=== PATIENT | female | born 1930 | race Caucasian/White ===

== ENCOUNTER 2018-03-20 11:32 | Day surgery (SDC) | payer MEDICARE ==
[~2018-03-20 11:32] MED LIST: ACETYLCHOLINE OPHTH SOLN 1% 2ML (MIOCHOL-E) As Ordered; BALANCED SALT IRRIGATION SOLUTION 500ML BAG (FOR OR EYE MACHINE) As Ordered; CEFUROXIME 1MG/0.1ML INTRACAMERAL INJ As Ordered; CYCLOPENTOLATE 2% OPHTH SOLN 2ML BTL OD; HEALON DUET (HEALON 10MG/ML 0.55ML & HEALON ENDOCOAT 30MG/ML 0.85ML) As Ordered; LIDOCAINE 1% SDV 5 ML VIAL As Ordered; LIDOCAINE 3.5 % 1ML OPHTH TOPICAL GEL OU; OFLOXACIN 0.3 % (OCUFLOX) OPTH SOL 5ML OD; PHENYLEPHRINE 2.5% OPHTH SOL 2ML OD; PHENYLEPHRINE HCL 10 % OPHTH. SOL 5ML OD; POVIDONE-IODINE 5% OPHTH PREP SOL 30ML As Ordered; TROPICAMIDE 1% OPHTH SOLN 2ML OD
[2018-03-20] MEDS ORDERED: TROPICAMIDE 1% OPHTH SOLN 2ML As Ordered (12:58)
[2018-03-20] MEDS ORDERED: CYCLOPENTOLATE 2% OPHTH SOLN 2ML BTL As Ordered (12:58)
[2018-03-20] MEDS ORDERED: PHENYLEPHRINE 2.5% OPHTH SOL 2ML As Ordered (12:58)
[2018-03-20] MEDS ORDERED: OFLOXACIN 0.3 % (OCUFLOX) OPTH SOL 5ML As Ordered (12:58)
== END 2018-03-20 14:05 | disposition home or self-care (01) ==
LOC: M SDC 11:32
DX: Z53.09 Procedure and treatment not carried out because of other contraindication (principal); H25.12 Age-related nuclear cataract, left eye; H21.561 Pupillary abnormality, right eye

== ENCOUNTER 2018-04-10 08:58 | Day surgery (SDC) | payer MEDICARE ==
[~2018-04-10 08:58] MED LIST changes: +ACETAMINOPHEN 325 MG TAB PO; -ACETYLCHOLINE OPHTH SOLN 1% 2ML (MIOCHOL-E) As Ordered; -BALANCED SALT IRRIGATION SOLUTION 500ML BAG (FOR OR EYE MACHINE) As Ordered; -CEFUROXIME 1MG/0.1ML INTRACAMERAL INJ As Ordered; -CYCLOPENTOLATE 2% OPHTH SOLN 2ML BTL OD; -HEALON DUET (HEALON 10MG/ML 0.55ML & HEALON ENDOCOAT 30MG/ML 0.85ML) As Ordered; -LIDOCAINE 1% SDV 5 ML VIAL As Ordered; -LIDOCAINE 3.5 % 1ML OPHTH TOPICAL GEL OU; -OFLOXACIN 0.3 % (OCUFLOX) OPTH SOL 5ML OD; -PHENYLEPHRINE 2.5% OPHTH SOL 2ML OD; -POVIDONE-IODINE 5% OPHTH PREP SOL 30ML As Ordered; -TROPICAMIDE 1% OPHTH SOLN 2ML OD
[2018-04-10] MEDS ORDERED: OFLOXACIN 0.3 % (OCUFLOX) OPTH SOL 5ML As Ordered (09:17)
[2018-04-10] MEDS ORDERED: TROPICAMIDE 1% OPHTH SOLN 2ML As Ordered (09:17)
[2018-04-10] MEDS ORDERED: CYCLOPENTOLATE 2% OPHTH SOLN 2ML BTL As Ordered (09:17)
[2018-04-10] MEDS ORDERED: PHENYLEPHRINE 2.5% OPHTH SOL 2ML As Ordered (09:17)
[2018-04-10] MEDS: LIDOCAINE 3.5 % 1ML OPHTH TOPICAL GEL OU (09:43)
[2018-04-10] MEDS: OFLOXACIN 0.3 % (OCUFLOX) OPTH SOL 5ML OD (09:43)
[2018-04-10] MEDS: CYCLOPENTOLATE 2% OPHTH SOLN 2ML BTL OD (09:43)
[2018-04-10] MEDS: TROPICAMIDE 1% OPHTH SOLN 2ML OD (09:43)
[2018-04-10] MEDS: PHENYLEPHRINE 2.5% OPHTH SOL 2ML OD (09:43)
[2018-04-10] MEDS ORDERED: fentaNYL 100 MCG/2 ML INJECTION (J3010) As Ordered (11:33)
[2018-04-10] MEDS ORDERED: MIDAZOLAM INJ 2 MG/2 ML VIAL (J2250) As Ordered (11:33)
[2018-04-10] MEDS: PROPARACAINE 0.5% OPHTH SOL 15ML OD (11:34)
[2018-04-10] MEDS: LIDOCAINE 1% SDV 5 ML VIAL As Ordered (11:37)
[2018-04-10] MEDS: HEALON DUET (HEALON 10MG/ML 0.55ML & HEALON ENDOCOAT 30MG/ML 0.85ML) As Ordered (11:37)
[2018-04-10] MEDS: BALANCED SALT IRRIGATION SOLUTION 500ML BAG (FOR OR EYE MACHINE) As Ordered (11:37)
[2018-04-10] MEDS: POVIDONE-IODINE 5% OPHTH PREP SOL 30ML As Ordered (11:37)
[2018-04-10] MEDS: CEFUROXIME 1MG/0.1ML INTRACAMERAL INJ As Ordered (11:37)
[2018-04-10] MEDS ORDERED: TRIMETHOBENZAMIDE 300 MG CAP PO (12:00)
[2018-04-10] MEDS: AcetaZOLAMIDE 500 MG ER CAP PO (12:13)
[2018-04-10] MEDS ORDERED: ONDANSETRON 4MG/2ML VIAL (J2405) IV (12:15)
[2018-04-10] MEDS: KETOROLAC 0.5% OPHTH SOLN OD (12:15)
== END 2018-04-10 12:33 | disposition home or self-care (01) ==
LOC: M SDC 08:58
DX: H25.11 Age-related nuclear cataract, right eye (principal); I25.10 Atherosclerotic heart disease of native coronary artery without angina pectoris; I10 Essential (primary) hypertension; I25.2 Old myocardial infarction; Z95.0 Presence of cardiac pacemaker; Z79.02 Long term (current) use of antithrombotics/antiplatelets; Z79.899 Other long term (current) drug therapy; E78.5 Hyperlipidemia, unspecified
CPT/HCPCS: 66984

== ENCOUNTER 2018-05-08 10:42 | Day surgery (SDC) | payer MEDICARE ==
[~2018-05-08 10:42] MED LIST changes: +LIDOCAINE 1% MDV 20ML VIAL SQ; +MIDAZOLAM INJ 2 MG/2 ML VIAL (J2250) As Ordered; -PHENYLEPHRINE HCL 10 % OPHTH. SOL 5ML OD; +PHENYLEPHRINE HCL 10 % OPHTH. SOL 5ML OS; +PROPARACAINE 0.5% OPHTH SOL 15ML OS
[2018-05-08] MEDS: CYCLOPENTOLATE 2% OPHTH SOLN 2ML BTL OS (12:45)
[2018-05-08] MEDS: OFLOXACIN 0.3 % (OCUFLOX) OPTH SOL 5ML OS (12:46)
[2018-05-08] MEDS: TROPICAMIDE 1% OPHTH SOLN 2ML OS (12:46)
[2018-05-08] MEDS: LIDOCAINE 3.5 % 1ML OPHTH TOPICAL GEL OU (12:46)
[2018-05-08] MEDS: PHENYLEPHRINE 2.5% OPHTH SOL 2ML OS (12:46)
[2018-05-08] MEDS: POVIDONE-IODINE 5% OPHTH PREP SOL 30ML As Ordered (13:32)
[2018-05-08] MEDS: LIDOCAINE 1% SDV 5 ML VIAL As Ordered (13:35)
[2018-05-08] MEDS ORDERED: fentaNYL 100 MCG/2 ML INJECTION (J3010) As Ordered (13:36)
[2018-05-08] MEDS: BALANCED SALT IRRIGATION SOLUTION 500ML BAG (FOR OR EYE MACHINE) As Ordered (13:37)
[2018-05-08] MEDS: HEALON DUET (HEALON 10MG/ML 0.55ML & HEALON ENDOCOAT 30MG/ML 0.85ML) As Ordered (13:42)
[2018-05-08] MEDS: CEFUROXIME 1MG/0.1ML INTRACAMERAL INJ As Ordered (13:43)
[2018-05-08] MEDS ORDERED: AcetaZOLAMIDE 500 MG ER CAP As Ordered (14:10)
[2018-05-08] MEDS: AcetaZOLAMIDE 500 MG ER CAP PO (14:13)
[2018-05-08] MEDS: KETOROLAC 0.5% OPHTH SOLN OS (14:13)
[2018-05-08] MEDS ORDERED: TRIMETHOBENZAMIDE 300 MG CAP PO (14:45)
== END 2018-05-08 14:34 | disposition home or self-care (01) ==
LOC: M SDC 10:42
DX: H25.12 Age-related nuclear cataract, left eye (principal); I25.2 Old myocardial infarction; I25.10 Atherosclerotic heart disease of native coronary artery without angina pectoris; Z95.0 Presence of cardiac pacemaker; I10 Essential (primary) hypertension; E78.5 Hyperlipidemia, unspecified; Z79.899 Other long term (current) drug therapy; Z79.02 Long term (current) use of antithrombotics/antiplatelets
CPT/HCPCS: 66984